=== PATIENT | female | born 1945 | race Caucasian/White ===

== ENCOUNTER 2021-07-08 09:59 | Outpatient (CLI) | payer MEDICARE, BC ==
[2021-07-08 19:47] LABS: SARS-CoV-2 PCR by NAA Not Detected (NotDetected)
== END 2021-07-08 10:00 | disposition home or self-care (01) ==
LOC: CSHLAB 09:59
PROVIDERS: ATTEND Internal Medicine Critical Care Medicine
DX: Z20.822 Contact with and (suspected) exposure to COVID-19 (principal)
CPT/HCPCS: U0003; U0005

== ENCOUNTER 2021-07-11 07:30 | Outpatient (CLI) | payer MEDICARE, BC | END 2021-07-11 07:31 | disposition home or self-care (01) | LOC: CSHCP 07:30 | PROVIDERS: ATTEND Internal Medicine Critical Care Medicine | DX: J44.9 Chronic obstructive pulmonary disease, unspecified (principal); N28.1 Cyst of kidney, acquired; N20.0 Calculus of kidney; I70.0 Atherosclerosis of aorta; R94.2 Abnormal results of pulmonary function studies | CPT/HCPCS: 71250; 94060; 94726; 94729; 94760 ==